=== PATIENT | male | born 1935 ===

== ENCOUNTER 2017-11-07 10:18 | Outpatient (CLI) | payer OTHER ==
[~2017-11-07] VITALS: Ht 152.4 cm; Wt 86.2 kg
[~2017-11-07 10:18] MED LIST: ACID REDUCER20 MG; ATORVASTATIN CA20 MG; GLUMETZA1000 MG; ISOSORBIDE MONO30 MG; LIPITOR20 MG; PRINIVIL5 MG; VERAPAMIL ER240 MG; [UNRECOGNIZED DRUG - SUPPLY]
== END 2017-11-07 10:30 | disposition home or self-care (01) ==
LOC: OFIC 805 10:18
DX: H61.23 Impacted cerumen, bilateral (principal); J31.0 Chronic rhinitis; H93.11 Tinnitus, right ear; H90.3 Sensorineural hearing loss, bilateral

== ENCOUNTER 2017-12-18 08:00 | Inpatient (IN) | payer OTHER ==
[~2017-12-18] VITALS: Ht 170.2 cm; Wt 81.6 kg
[2017-12-26] MEDS ORDERED: CEFADROXIL500 MG PO (08:17)
[2017-12-26] MEDS ORDERED: XARELTO10 MG PO (08:17)
[2017-12-26] MEDS ORDERED: PERCOCET 5-3251 EACH PO (08:17)
== END 2017-12-26 15:46 | DRG 470 ==
LOC: O/R 12-23 06:10 → SURG 12-23 06:10
PROVIDERS: Orthopaedic Surgery
PROC: 0MNP0ZZ Release Left Knee Bursa and Ligament, Open Approach (ICD-10-PCS; 2017-12-23)
PROC: 0SRD0J9 Replacement of Left Knee Joint with Synthetic Substitute, Cemented, Open Approach (ICD-10-PCS; principal; 2017-12-23 10:30)
DX: M17.12 Unilateral primary osteoarthritis, left knee (principal); D62 Acute posthemorrhagic anemia; E11.9 Type 2 diabetes mellitus without complications; I10 Essential (primary) hypertension

== ENCOUNTER 2021-02-05 10:00 | Outpatient (CLI) | payer OTHER ==
[~2021-02-05 10:00] MED LIST changes: +CEFADROXIL500 MG PO; +PERCOCET 5-3251 EACH PO; +XARELTO10 MG PO
== END 2021-02-05 10:01 | disposition home or self-care (01) ==
LOC: LAB 10:00
PROVIDERS: ATTEND Specialist
DX: N39.8 Other specified disorders of urinary system (principal); N40.1 Benign prostatic hyperplasia with lower urinary tract symptoms; D64.89 Other specified anemias

== ENCOUNTER 2021-05-25 07:11 | Outpatient (CLI) | payer OTHER | END 2021-05-25 07:13 | disposition home or self-care (01) | LOC: NUCLEAR 07:11 | PROVIDERS: ATTEND Internal Medicine Cardiovascular Disease | DX: R07.89 Other chest pain (principal); I50.1 Left ventricular failure, unspecified | CPT/HCPCS: 78452; 93017; A9500; J0153 ==

== ENCOUNTER 2022-10-16 12:24 | Outpatient (CLI) | payer OTHER | END 2022-10-16 12:34 | disposition home or self-care (01) | LOC: PPH VACUNA 12:24 | PROVIDERS: ATTEND Emergency Medicine Pediatric Emergency Medicine | DX: Z23 Encounter for immunization (principal) ==

== ENCOUNTER → 2024-02-04 12:11 | Outpatient (CLI) | payer OTHER ==
[2024-02-04 14:40] LABS: PH,URINE 5.5 (5.0-8.0); URINE APPEARANCE Clear; URINE BILIRRUBIN Negative (NEGATIVE); URINE BLOOD Negative; URINE COLOR Yellow; URINE GLUCOSE Negative (NEGATIVE); URINE LEUKOCYTE Small; URINE NITRATE Positive; URINE PROTEIN Negative (NEGATIVE); URINE UROBILINOGEN 0.2 E.U./dl
[2024-02-04 14:41] LABS: URINE EPITHELIAL CELLS 2.6 uL (0.0-38.8); URINE WBC 89.7 uL (0.0-23.2)
[2024-02-04 15:20] LABS: URINE BACTERIA > 9821.5 uL (0.0-1933); URINE RBC 0.5 uL (0.0-20.8)
== END | disposition home or self-care (01) ==
LOC: LAB 12:11
PROVIDERS: ATTEND Specialist
DX: N39.0 Urinary tract infection, site not specified (principal)

== ENCOUNTER 2024-02-04 13:10 | Outpatient (CLI) | payer OTHER | END 2024-02-04 13:12 | disposition home or self-care (01) | LOC: RAD 13:10 | PROVIDERS: ATTEND Specialist | DX: M54.6 Pain in thoracic spine (principal); S22.008A Other fracture of unspecified thoracic vertebra, initial encounter for closed fracture ==